=== PATIENT | male | born 1965 | race Caucasian/White ===

== ENCOUNTER → 2023-09-27 | Outpatient (CLI) | payer OTHER ==
--- NOTE | 2023-09-28 00:21 | CT ---
EXAMINATION TYPE: CT wrist LT wo con DATE OF EXAM: 09/27/2023 6:58 PM COMPARISON: None available. CLINICAL INDICATION:Male, 58 years old with history of S52.614A FX ULNAR; [facility], trauma 2 weeks ago TECHNIQUE: Noncontrast CT was obtained of the left wrist. Multiplanar bone and soft tissue window betsy ges were submitted for review. 3-D reconstruction was created on a separate workstation. Contrast used: mL of , Oral contrast used: None CT DLP: 137 mGycm, Automated exposure control for dose reduction was used. FINDINGS: Bone: Osseous mineralization appears appropriate. Distal radius and distal ulna appear intact. Mild degener ative change of the distal radial ulnar joint. Carpals of the first row appear intact and normally aligned. 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 Second row carpal bones appear intact and soila lly aligned. At the base of the first metacarpal, there is a longitudinally oriented fracture which is slightly ob lique to the sagittal plane extending intra-articular through the proximal medial aspect of the base of the metacarpal. There is mild displacement and distraction of fragments at the fracture site. Frac ture gap measures up to 2 mm along the articular surface, however no significant articular surface st ep-off is appreciated. There appears to be some mild subluxation of the base of the larger, lateral f racture fragment along the first CMC joint. The visualized proximal aspects of the second through fif th metacarpals appear intact and normally aligned. Soft tissues: There is a short linear radiodensity seen just subcutaneous in the soft tissues medially at the level of the pisiform, suggestive of foreign body. Mild soft tissue swelling regional to the fracture. No focal fluid collection is identified. IMPRESSION: Left wrist: * Acute intra-articular fracture at the base of the first metacarpal, as described. * Mild subluxation of the base of the larger, lateral fracture fragment along the first CMC joint, w ithout gross dislocation. * Short linear radiodensity suggesting foreign body in the subcutaneous soft tissues medially at the level of the pisiform.
== END | disposition home or self-care (01) ==
LOC: RADCTMAIN 17:12
PROVIDERS: ATTEND Orthopaedic Surgery Hand Surgery
DX: S62.102A Fracture of unspecified carpal bone, left wrist, initial encounter for closed fracture (principal); S62.002A Unspecified fracture of navicular [scaphoid] bone of left wrist, initial encounter for closed fracture; X58.XXXA Exposure to other specified factors, initial encounter